=== PATIENT | male | born 1980 | race Caucasian/White ===

== ENCOUNTER → 2018-10-06 | Outpatient (CLI) | payer BC ==
--- NOTE | 2018-10-06 09:18 | US ---
EXAMINATION TYPE: US gallbladder DATE OF EXAM: 10/06/2018 COMPARISON: NONE CLINICAL HISTORY: K81.0 Acute cholecystitis. Difficult and limited exam due to overlying bowel gas EXAM MEASUREMENTS: Liver Length: 16.3 cm Gallbladder Wall: 0.2 cm CBD: 0.6 cm Right Kidney: 11.0 x 5.7 x 6.3 cm Pancreas: Visualized portions wnl Liver: Limited visualization due to overlying bowel. Visualized portions are coarse and heterogeneou s Gallbladder: No stones visualized Evidence for sonographic Bush's sign: No CBD: Measuring upper limits of normal, distal portion obscured by bowel gas Right Kidney: No hydronephrosis. Lobulated contour Visualized pancreas is heterogeneous without worrisome mass or ductal dilatation. Visualized liver is heterogeneously hyperechoic. Evaluation for focal masses is suboptimal due to the heterogeneity. Gal lbladder is seen without shadowing mobile gallstones. Common bile duct measures upper limits of justin l. Limited images right kidney show no gross hydronephrosis. IMPRESSION: No shadowing mobile gallstones or ultrasound evidence for acute cholecystitis. Probable d iffuse fatty infiltration of liver noted.
== END | disposition home or self-care (01) ==
LOC: RADUSWWP 06:56
PROVIDERS: ATTEND Family Medicine
DX: K81.0 Acute cholecystitis (principal); Z88.8 Allergy status to other drugs, medicaments and biological substances
CPT/HCPCS: 76705

== ENCOUNTER → 2018-10-14 | Outpatient (CLI) | payer BC ==
--- NOTE | 2018-10-15 07:31 | NM ---
EXAMINATION TYPE: NM hepatobiliary w EF DATE OF EXAM: 10/14/2018 COMPARISON: NONE HISTORY: Pain TECHNIQUE: After the intravenous administration of 4.78 mCi Tc 99m Mebrofenin hepatobiliary scintigra phy is performed. Immediate images post injection. FINDINGS: There is satisfactory initial accumulation of tracer by the liver. The gallbladder is visualized wit hin 6 minutes. The small bowel activity is noted within 24 minutes. At one hour 8 ounces of oral en sure plus is given to mimic CCK and gallbladder ejection fraction is calculated at 48 %, in the justin l range. Therefore there is no scintigraphic evidence of cystic or common bile duct obstruction to s uggest acute cholecystitis or gallbladder dyskinesia. IMPRESSION: Exam is within normal limits.
== END | disposition home or self-care (01) ==
LOC: RADNMMAIN 14:43
PROVIDERS: ATTEND Family Medicine
DX: K81.0 Acute cholecystitis (principal)
CPT/HCPCS: 78226; A9537

== ENCOUNTER 2020-12-23 16:35 | Emergency (ER) | payer BC ==
[2020-12-23 17:03] VITALS: BP 145/89; PULSE 75; RESP 16; TEMP 98.5
[2020-12-23] MEDS ORDERED: ACETAMINOPHEN TAB 325 MG TAB PO STA (18:11)
[2020-12-23] MEDS ORDERED: LIDOCAINE 1% INJ 10MG/ML (20 ML MDV) SQ ONE (18:11)
[2020-12-23] MEDS ORDERED: DIPH,PERTUS(ACELL)TETVAC-LF 0.5 ML VIAL IM ONE (18:11)
[2020-12-23] MEDS ORDERED: IBUPROFEN 600 MG STARTER PACK 4 TAB BTL PO STA (18:11)
[2020-12-23] MEDS ORDERED: GELATIN SPONGE,ABSORB (SMALL) 1 EACH SPONGE TOPICAL STA (18:11)
--- NOTE | 2020-12-23 18:31 | XR ---
EXAMINATION TYPE: XR finger LT DATE OF EXAM: 12/23/2020 COMPARISON: NONE HISTORY: Laceration TECHNIQUE: 3 views FINDINGS: There is fracture at the tuft of the distal phalanx of the left thumb. There is 6 x 3 mm ar ea of loss of bone at the tuft. There is no evidence of a foreign body. IMPRESSION: Fracture with loss of bone. No foreign body seen.
[2020-12-23] MEDS ORDERED: ceFAZolin 1,000 MG VIAL (IM USE) IM STA (18:45)
--- NOTE | 2020-12-23 19:32 | ED ---
Wound/Laceration HPI - General Source: patient Mode of arrival: ambulatory Limitations: no limitations <Cathie Rodriguez - Last Filed: 12/23/20 21:27> <Pricila Rabago - Last Filed: 12/26/20 02:23> - General Chief Complaint: Wound/Laceration Stated Complaint: L Thumb Lac Time Seen by Provider: 12/23/20 18:00 - History of Present Illness Initial Comments: 40-year-old male patient presents to the emergency department today for evaluation of injury to the left thumb. Patient states he was cutting wood with a skill saw when he slipped and cut his thumb. Is reporting a throbbing pain to the area. Denies any difficulty with range of motion. Was able to get the bleeding under control. Has not taking anything for pain. Denies any other injuries. He is unsure when his last tetanus vaccine was given. Denies use of blood thinning medications. (Cathie Rodriguez) - Related Data Previous Rx's Medication Instructions Recorded Cephalexin [Keflex] 500 mg PO Q6H #28 cap 12/23/20 Allergies Allergy/AdvReac Type Severity Reaction Status Date / Time HUMZA Inhibitors AdvReac Unknown Verified 12/23/20 17:01 Review of Systems ROS Other: All systems not noted in ROS Statement are negative. <Cathie Rodriguez - Last Filed: 12/23/20 21:27> ROS Other: All systems not noted in ROS Statement are negative. <Pricila Rabago - Last Filed: 12/26/20 02:23> ROS Statement: Those systems with pertinent positive or pertinent negative responses have been documented in the HPI. Past Medical History Past Medical History: GERD/Reflux, Hyperlipidemia, Hypertension History of Any Multi-Drug Resistant Organisms: None Reported Past Surgical History: Hernia Repair Past Psychological History: No Psychological Hx Reported Smoking Status: Never smoker Past Alcohol Use History: None Reported Past Drug Use History: None Reported <Cathie Rodriguez - Last Filed: 12/23/20 21:27> General Exam Limitations: no limitations General appearance: alert, in no apparent distress Respiratory exam: Present: normal lung sounds bilaterally. Absent: respiratory distress, wheezes, rales, rhonchi, stridor Cardiovascular Exam: Present: regular rate, normal rhythm, normal heart sounds. Absent: systolic murmur, diastolic murmur, rubs, gallop, clicks Extremities exam: Present: full ROM, normal capillary refill, other (There is skin avulsion and nail avulsion injury to the left distal thumb. Skin is otherwise pink, warm, and dry. Cap refil less than 3 seconds. Radial pulses 2+.). Absent: tenderness, pedal edema, joint swelling, calf tenderness Neurological exam: Present: alert, oriented X3, CN II-XII intact Psychiatric exam: Present: normal affect, normal mood Skin exam: Present: warm, dry, intact, normal color. Absent: rash <Cathie Rodriguez - Last Filed: 12/23/20 21:27> Course Vital Signs 12/23/20 17:01 Temperature 98.5 F Pulse Rate 75 Respiratory 16 Rate Blood Pressure 145/89 O2 Sat by Pulse 99 Oximetry Procedures - Laceration Laceration #1 Consent Obtained: verbal consent Indication: other (Skin and partial nail avulsion) Site: upper extremity (left thumb) Size (cm): 2 Description: avulsion Depth: simple, single layer Anesthetic Used: lidocaine 1% Anesthesia Technique: nerve block Amount (mls): 4 Pre-repair: irrigated extensively Patient Tolerated Procedure: well, no complications <Cathie Rodriguez - Last Filed: 12/23/20 21:27> - Laceration Laceration #1 Additional Comments: Wound was cleansed, two pieces of nail were hanging by a small piece of tissue, these were removed. The proximal nail fold remains in place. Some avulsed skin was removed. Gel foam placed. Dressing applied. (Cathie Rodriguez) Medical Decision Making - Radiology Data Radiology results: report reviewed, image reviewed <Cathie Rodriguez - Last Filed: 12/23/20 21:27> <Pricila Rabago - Last Filed: 12/26/20 02:23> - Medical Decision Making 40 year-old male patient presents to the emergency department for evaluation of injury to the left thumb. Physical examination shows nail and skin avulsion to the left thumb. Xray was obtained and showed a tuft fracture. Patient was given IM kefzol, adacel, pain medication. I did remove that avulsed nail bits, and a small area of avulsed pale skin. Gel foam was applied, dressing applied. She'll be discharged with a prescription for Keflex. Instructed to follow up with client success specialist for further evaluation as soon as possible. Return parameters were discussed in detail. He verbalizes understanding and agrees with this plan. My attending is Dr. Rabago. (Cathie Rodriguez) I was available for consultation in the emergency department. The history and physical exam were done by the midlevel provider. I was consulted for this patients care. I reviewed the case with the midlevel provider and based on their presentation of the patient, I agree with the assessment, medical decision making and plan of care as documented. Chart was dictated using [employer] dictation software. Attempts were made to correct any dictation errors however some typographical errors may persist. Patient was seen during a national state of emergency due to the Covid-19 pandemic. (Pricila Rabago) - Radiology Data X-ray of the left thumb is obtained. Report was reviewed in its entirety. Impression by Dr. Forrest shows fracture with loss of bone. No foreign body seen. (Cathie Rodriguez) Disposition Is patient prescribed a controlled substance at d/c from ED?: No Time of Disposition: 19:31 <Cathie Rodriguez - Last Filed: 12/23/20 21:27> <Pricila Rabago - Last Filed: 12/26/20 02:23> Clinical Impression: Nail avulsion, finger, Open fracture of tuft of distal phalanx of left thumb, Avulsion of skin of finger Disposition: HOME SELF-CARE Condition: Good Instructions (If sedation given, give patient instructions): Finger Fracture (ED), Skin Avulsion (ED), Nail Avulsion (ED) Additional Instructions: Take Tylenol and Motrin for pain control. Keep wound clean and dry. Cleanse twice daily with warm water and antibacterial soap. Follow-up with orthopedics for further evaluation as soon as possible. Return to the emergency department for any new, worsening, or concerning symptoms. Prescriptions: Cephalexin [Keflex] 500 mg PO Q6H #28 cap Referrals: Gavin Espitia DO [Primary Care Provider] - 1-2 days Ben Bush MD [STAFF PHYSICIAN] - 1-2 days
== END 2020-12-23 19:39 | disposition home or self-care (01) ==
LOC: EC 16:35
DX: S62.522B Displaced fracture of distal phalanx of left thumb, initial encounter for open fracture (principal); K21.9 Gastro-esophageal reflux disease without esophagitis; I10 Essential (primary) hypertension; E78.5 Hyperlipidemia, unspecified; Z23 Encounter for immunization; W31.2XXA Contact with powered woodworking and forming machines, initial encounter
CPT/HCPCS: 73140; 90715; 99283; 12001; 96372; 90471; J0690; J2001

== ENCOUNTER 2021-08-15 10:25 | Emergency (ER) | payer BC ==
[2021-08-15 10:42] VITALS: BP 130/89; PULSE 89; RESP 18; TEMP 98.2
--- NOTE | 2021-08-15 11:40 | ED ---
URI HPI - General Chief Complaint: Upper Respiratory Infection Stated Complaint: Upper Resp Time Seen by Provider: 08/15/21 11:30 Source: patient, family, RN notes reviewed Mode of arrival: ambulatory Limitations: no limitations - History of Present Illness Initial Comments: This is a well-appearing well-nourished 41-year-old male that presents to the e mergency room, alert and oriented 4, with complaints of upper respiratory type symptoms. Patient states that since beginning of July he has had a cough, nasal congestion, sinus pressure. He was tested for Covid on Friday and negative. He has been trying [id number] medications since July with minimal relief. He was seen by an urgent care and given Z-Mike which she has not worked here he went to another urgent care and was prescribed amoxicillin which he is currently taking. He states that he is now coughing up brown phlegm. Denies any fevers, nausea vomiting diarrhea, chest pain or difficulty breathing. He has no appetite change. He has no medical history. MD Complaint: cough, sore throat, nasal congestion -: month(s) (1) Improves With: OTC cold medicine Worsens With: nothing Context: sick contacts (covid contacts a few weeks ago) Associated Symptoms: nasal congestion, sore throat, cough Treatments Prior to Arrival: antibiotics (Zithromax and amoxicillin) - Related Data Previous Rx's Medication Instructions Recorded Cephalexin [Keflex] 500 mg PO Q6H #28 cap 12/23/20 Albuterol Inhaler [Ventolin Hfa 2 puff INHALATION RT-QID PRN #8 gm 08/15/21 Inhaler] Benzonatate [Tessalon Perles] 100 mg PO TID PRN #15 capsule 08/15/21 Allergies Allergy/AdvReac Type Severity Reaction Status Date / Time HUMZA Inhibitors AdvReac Unknown Verified 08/15/21 10:42 Review of Systems ROS Statement: Those systems with pertinent positive or pertinent negative responses have been documented in the HPI. ROS Other: All systems not noted in ROS Statement are negative. Past Medical History Past Medical History: GERD/Reflux, Hyperlipidemia, Hypertension History of Any Multi-Drug Resistant Organisms: None Reported Past Surgical History: Hernia Repair Past Psychological History: No Psychological Hx Reported Smoking Status: Never smoker Past Alcohol Use History: None Reported Past Drug Use History: None Reported General Exam Limitations: no limitations General appearance: alert, in no apparent distress Head exam: Present: atraumatic, normocephalic, normal inspection Eye exam: Present: normal appearance, EOMI ENT exam: Present: normal exam, normal oropharynx, mucous membranes moist Neck exam: Present: normal inspection, full ROM. Absent: tenderness, meningismus, lymphadenopathy, thyromegaly Respiratory exam: Present: normal lung sounds bilaterally. Absent: respiratory distress, wheezes, rales, rhonchi, stridor Cardiovascular Exam: Present: regular rate, normal rhythm, normal heart sounds. Absent: systolic murmur, diastolic murmur, rubs, gallop, clicks Back exam: Present: normal inspection, full ROM. Absent: tenderness, CVA tenderness (R), CVA tenderness (L), rash noted Neurological exam: Present: alert, oriented X3 Psychiatric exam: Present: normal affect, normal mood Skin exam: Present: warm, dry, intact, normal color. Absent: rash, cyanosis, diaphoretic, petechiae, pallor Course Vital Signs 08/15/21 10:37 Temperature 98.2 F Pulse Rate 89 Respiratory 18 Rate Blood Pressure 130/89 O2 Sat by Pulse 97 Oximetry Medical Decision Making - Medical Decision Making This is a well-appearing 41-year-old male who presents to the emergency room with complaints of upper respiratory congestion and sinus pressure since July. He states he was seen at urgent care and given a Z-Mike he continues to have the symptoms he has recently been placed on amoxicillin which she is currently taking. He started to cough up brown phlegm which is what brought him to the emergency room today. He was tested for coronavirus on Friday and negative. X-ray shows no acute cardiopulmonary process. Lung sounds are clear to auscultation. Oxygen saturation is 97%. He is afebrile in the emergency room and is not tachycardic. Patient has no medical history. This is likely a viral illness and patient was directed to follow up with his primary care doctor. He was prescribed an albuterol inhaler and Tessalon Perles as requested. Case discussed with Dr. Loo Disposition Clinical Impression: Acute upper respiratory infection Disposition: HOME SELF-CARE Condition: Good Instructions (If sedation given, give patient instructions): Upper Respiratory Infection (ED) Additional Instructions: Use the albuterol inhaler as needed for any difficulty breathing or coughing. You can use 2 puffs every 4 hours as needed. Follow-up with your primary care doctor this week. Return to the emergency room with any new or concerning symptoms. Prescriptions: Benzonatate [Tessalon Perles] 100 mg PO TID PRN #15 capsule PRN Reason: Cough Albuterol Inhaler [Ventolin Hfa Inhaler] 2 puff INHALATION RT-QID PRN #8 gm PRN Reason: Cough Is patient prescribed a controlled substance at d/c from ED?: No Referrals: Gavin Espitia DO [Primary Care Provider] - 1-2 days Time of Disposition: 12:48
--- NOTE | 2021-08-15 12:14 | XR ---
EXAMINATION TYPE: XR chest 2V DATE OF EXAM: 08/15/2021 COMPARISON: None INDICATION: Cough TECHNIQUE: Frontal and lateral views of the chest are obtained. FINDINGS: The heart size is normal. The pulmonary vasculature is normal. The lungs are clear. IMPRESSION: 1. No acute pulmonary process.
== END 2021-08-15 13:11 | disposition home or self-care (01) ==
LOC: EC 10:25
DX: J06.9 Acute upper respiratory infection, unspecified (principal); I10 Essential (primary) hypertension; E78.5 Hyperlipidemia, unspecified; K21.9 Gastro-esophageal reflux disease without esophagitis
CPT/HCPCS: 71046; 99283

== ENCOUNTER 2023-04-01 18:09 | Emergency (ER) | payer BC ==
[2023-04-01 18:34] VITALS: TEMP 98.5
[2023-04-01 20:24] LABS: Basophils % (A) 0 %; Eosinophils # (A) 0.2 k/uL (0-0.7); Eosinophils % (A) 2 %; HCT 43.3 % (39.0-53.0); HGB 15.1 gm/dL (13.0-17.5); Lymphocytes # (A) 2.2 k/uL (1.0-4.8); Lymphocytes % (A) 26 %; MCH 29.6 pg (25.0-35.0); MCHC 34.9 g/dL (31.0-37.0); MCV 84.9 fL (80.0-100.0); Mean Platelet Volume 7.9; Monocytes # (A) 0.5 k/uL (0-1.0); Monocytes % (A) 6 %; Neutrophils # (A) 5.4 k/uL (1.3-7.7); Neutrophils % (A) 64 %; Platelet Count 256 k/uL (150-450); RBC 5.09 m/uL (4.30-5.90); RDW 13.5 % (11.5-15.5); WBC 8.5 k/uL (3.8-10.6)
[2023-04-01 20:41] LABS: ALT 41 U/L (4-49); AST 27 U/L (17-59); African American GFR (CKD) >90 (>60 ml/min/1.73 sqM); Albumin 4.4 g/dL (3.5-5.0); Alkaline Phosphatase 75 U/L (38-126); Amylase 43 U/L (30-110); Anion Gap 10 mmol/L; Blood Urea Nitrogen 17 mg/dL (9-20); Calcium 9.4 mg/dL (8.4-10.2); Carbon Dioxide 23 mmol/L (22-30); Chloride 104 mmol/L (98-107); Glucose 102 mg/dL (74-99); Lipase 262 U/L (23-300); Non-African American GFR(CKD) >90 (>60 ml/min/1.73 sqM); Potassium 4.4 mmol/L (3.5-5.1); Sodium 137 mmol/L (137-145); Total Bilirubin 0.5 mg/dL (0.2-1.3); Total Protein 8.1 g/dL (6.3-8.2)
[2023-04-01 21:11] VITALS: PULSE 70; RESP 16
--- NOTE | 2023-04-01 21:16 | CT ---
EXAMINATION TYPE: CT abdomen pelvis wo con DATE OF EXAM: 04/01/2023 COMPARISON: None HISTORY: LLQ PAIN, H/O HERNIA CT DLP: 856.9 mGycm Examination of the solid and hollow viscera is limited given the lack of contrast. FINDINGS: LUNG BASES: No evidence for nodule. No evidence for infiltrate. LIVER/GB: There is hepatomegaly with underlying hepatic steatosis. The gallbladder is unremarkable. N o space-occupying hepatic lesion. PANCREAS: No pancreatic mass identified. No inflammatory process seen. SPLEEN: No evidence for splenomegaly. No intrasplenic lesions seen. ADRENALS: No adrenal nodules identified. No evidence for thickening. KIDNEYS: No evidence for renal mass. A 2 mm left ureteral calculus at the pelvic inlet resulting in v mavis mild left-sided hydronephrosis. No additional calculi seen. BOWEL: Appendix has a normal appearance. No evidence of bowel obstruction. No inflammatory process. Lymph nodes: No evidence for adenopathy greater than 1 cm. Abdominal aorta: Atheromatous changes seen. No evidence for aneurysm. Genital organs: No significant abnormality. Other: Small fat-containing left inguinal hernia. IMPRESSION: A 2 mm left ureteral calculus at the pelvic inlet resulting in very mild left-sided hydronephrosis. N o additional calculi seen.
[2023-04-01] MEDS ORDERED: TAMSULOSIN 0.4 MG CAP.ER.24H PO STA (22:14)
[2023-04-01 22:39] VITALS: BP 131/93
--- NOTE | 2023-04-01 22:48 | ED ---
Abdominal Pain HPI - General Chief Complaint: Abdominal Pain Stated Complaint: Abd pain Time Seen by Provider: 04/01/23 19:29 Source: patient Mode of arrival: ambulatory Limitations: no limitations - History of Present Illness Initial Comments: This patient is a 43-year-old man who presents to have evaluation of left lower quadrant/left groin pain. The patient states that it does somewhat remind him of a previous hernia that he had a but was repaired previously. The symptoms have been somewhat intermittent. He does not recall any injury or specific lifting episode. He has not noted fever or chills. No change in urination or bowel movements. No nausea or vomiting. MD Complaint: abdominal pain -: hour(s) Location: LLQ Radiation: none Migration to: no migration Severity: moderate Quality: sharp Consistency: colicky Improves With: nothing Worsens With: nothing Associated Symptoms: denies other symptoms - Related Data Previous Rx's Medication Instructions Recorded Cephalexin [Keflex] 500 mg PO Q6H #28 cap 12/23/20 Albuterol Inhaler [Ventolin Hfa 2 puff INHALATION RT-QID PRN #8 gm 08/15/21 Inhaler] Benzonatate [Tessalon Perles] 100 mg PO TID PRN #15 capsule 08/15/21 HYDROcodone/APAP 5-325MG [Buckner 1 tab PO Q4HR PRN 3 Days #18 tab 04/01/23 5-325] Tamsulosin [Flomax] 0.4 mg PO DAILY #14 cap 04/01/23 Allergies Allergy/AdvReac Type Severity Reaction Status Date / Time HUMZA Inhibitors AdvReac Unknown Verified 04/01/23 18:34 Review of Systems ROS Statement: Those systems with pertinent positive or pertinent negative responses have been documented in the HPI. ROS Other: All systems not noted in ROS Statement are negative. Constitutional: Denies: fever, chills Respiratory: Denies: cough, dyspnea Cardiovascular: Denies: chest pain, palpitations, edema Gastrointestinal: Reports: abdominal pain. Denies: nausea, vomiting, diarrhea, constipation, melena, hematochezia Genitourinary: Denies: dysuria, frequency, hematuria, testicular pain, testicular mass Musculoskeletal: Denies: back pain Skin: Denies: rash Neurological: Denies: headache Past Medical History Past Medical History: GERD/Reflux, Hyperlipidemia, Hypertension History of Any Multi-Drug Resistant Organisms: None Reported Past Surgical History: Hernia Repair Past Psychological History: No Psychological Hx Reported Smoking Status: Never smoker Past Alcohol Use History: None Reported Past Drug Use History: None Reported General Exam Limitations: no limitations General appearance: alert, in no apparent distress Head exam: Present: atraumatic, normocephalic Eye exam: Present: normal appearance. Absent: scleral icterus, conjunctival injection ENT exam: Present: normal oropharynx Respiratory exam: Present: normal lung sounds bilaterally. Absent: respiratory distress, wheezes, rales, rhonchi, stridor Cardiovascular Exam: Present: regular rate, normal rhythm, normal heart sounds. Absent: systolic murmur, diastolic murmur, rubs, gallop GI/Abdominal exam: Present: soft. Absent: distended, tenderness, guarding, rebound, rigid, mass, pulsatile mass, hernia exam: Present: normal inspection, vertical testicular lie. Absent: testicular tenderness, urethral discharge, scrotal swelling Back exam: Present: normal inspection. Absent: CVA tenderness (R), CVA tendern ess (L) Neurological exam: Present: alert Skin exam: Present: warm, dry, intact, normal color. Absent: rash Course Vital Signs 04/01/23 04/01/23 04/01/23 18:32 21:09 22:38 Temperature 98.5 F Pulse Rate 75 70 70 Respiratory 18 16 16 Rate Blood Pressure 142/87 130/96 131/93 O2 Sat by Pulse 97 98 97 Oximetry Medical Decision Making - Medical Decision Making Patient had computed tomography scan of the abdomen pelvis which I interpreted as showing distal left ureteral stone. This patient is a 43-year-old man with left pelvis/groin pain. The exam did not reveal presence of hernia. There was some microscopic hematuria and given severity of the pain, computed tomography scan obtained which does confirm presence of distal stone. We discussed appropriate further care and follow-up. We discussed return parameters. Was pt. sent in by a medical professional or institution (, PA, [employer], urgent care, hospital, or [place] [facility]...) When possible be specific @ -[No] Did you speak to anyone other than the patient for history (EMS, parent, family, police, friend...)? What history was obtained from this source @ -[No] Did you review nursing and triage notes (agree or disagree)? Why? @ -[I reviewed and agree with nursing and triage notes] Were old charts reviewed (outside hosp., previous admission, EMS record, old EKG, old radiological studies, urgent care reports/EKG's, [place] [facility] records)? Report findings @ -[No old charts were reviewed] Differential Diagnosis (chest pain, altered mental status, abdominal pain women, abdominal pain men, vaginal bleeding, weakness, fever, dyspnea, syncope, headache, dizziness, GI bleed, back pain, seizure, CVA, palpatations, mental health, musculoskeletal)? @ -[Differential Abdominal Pain Men: Appendicitis, cholecystitis, diverticulosis, ischemic bowel, pancreatitis, hepatitis, UTI, gastroenteritis, AAA, incarcerated hernia, bowel obstruction, constipation, inflammatory bowel, hepatitis, peptic ulcer disease, splenic infarction, perforated viscus, testicular torsion, this is not meant to be an all-inclusive list EKG interpreted by me (3pts min.). @ -[ X-rays interpreted by me (1pt min.). @ -[None done] CT interpreted by me (1pt min.). @ -[As above U/S interpreted by me (1pt. min.). @ -[None done] What testing was considered but not performed or refused? (CT, X-rays, U/S, labs)? Why? @ -[None] What meds were considered but not given or refused? Why? @ -[None] Did you discuss the management of the patient with other professionals (professionals i.e. , PA, [employer], lab, RT, psych nurse, nephrology social worker, histology supervisor, teacher, staff mine warfare officer, employment evaluator/case manager)? Give summary @ -[No] Was smoking cessation discussed for >3mins.? @ -[No] Was critical care preformed (if so, how long)? @ -[No] Were there social determinants of health that impacted care today? How? (Homelessness, low income, unemployed, alcoholism, drug addiction, transportation, low edu. Level, literacy, decrease access to med. care, [place] [facility], rehab)? @ -[No] Was there de-escalation of care discussed even if they declined (Discuss DNR or withdrawal of care, Hospice)? DNR status @ -[No] What co-morbidities impacted this encounter? (DM, HTN, Smoking, COPD, CAD, Cancer, CVA, ARF, Chemo, Hep., AIDS, mental health diagnosis, sleep apnea, morbid obesity)? @ -[None] Was patient admitted / discharged? Hospital course, mention meds given and route, prescriptions, significant lab abnormalities, going to OR and other pertinent info. @ -[Patient is discharged to follow up with urology on an as-needed basis. Undiagnosed new problem with uncertain prognosis? @ -[No] Drug Therapy requiring intensive monitoring for toxicity (Heparin, Nitro, Insulin, Cardizem)? @ -[No] Were any procedures done? @ -[No] Diagnosis/symptom? @ -[Abdominal pain Microscopic hematuria Left ureteral stone Acute, or Chronic, or Acute on Chronic? @ -[ACute Uncomplicated (without systemic symptoms) or Complicated (systemic symptoms)? @ -[Uncomplicated Side effects of treatment? @ -[No] Exacerbation, Progression, or Severe Exacerbation? @ -[No] Poses a threat to life or bodily function? How? (Chest pain, [place], [place], pneumonia, PE, COPD, DKA, ARF, appy, cholecystitis, CVA, Diverticulitis, Homicidal, Suicidal, threat to staff... and all critical care pts) @ -[No] - Lab Data Result diagrams: 04/01/23 20:14 04/01/23 20:14 Lab Results 04/01/23 04/01/23 04/01/23 Range/Units 20:14 20:14 21:00 WBC 8.5 (3.8-10.6) k/uL RBC 5.09 (4.30-5.90) m/uL Hgb 15.1 (13.0-17.5) gm/dL Hct 43.3 (39.0-53.0) % MCV 84.9 (80.0-100.0) fL MCH 29.6 (25.0-35.0) pg MCHC 34.9 (31.0-37.0) g/dL RDW 13.5 (11.5-15.5) % Plt Count 256 (150-450) k/uL MPV 7.9 Neutrophils % 64 % Lymphocytes % 26 % Monocytes % 6 % Eosinophils % 2 % Basophils % 0 % Neutrophils # 5.4 (1.3-7.7) k/uL Lymphocytes # 2.2 (1.0-4.8) k/uL Monocytes # 0.5 (0-1.0) k/uL Eosinophils # 0.2 (0-0.7) k/uL Basophils # 0.0 (0-0.2) k/uL Sodium 137 (137-145) mmol/L Potassium 4.4 (3.5-5.1) mmol/L Chloride 104 (98-107) mmol/L Carbon Dioxide 23 (22-30) mmol/L Anion Gap 10 mmol/L BUN 17 (9-20) mg/dL Creatinine 0.87 (0.66-1.25) mg/dL Est GFR (CKD-EPI)AfAm >90 (>60 ml/min/1.73 sqM) Est GFR (CKD-EPI)NonAf >90 (>60 ml/min/1.73 sqM) Glucose 102 H (74-99) mg/dL Calcium 9.4 (8.4-10.2) mg/dL Total Bilirubin 0.5 (0.2-1.3) mg/dL AST 27 (17-59) U/L ALT 41 (4-49) U/L Alkaline Phosphatase 75 (38-126) U/L Total Protein 8.1 (6.3-8.2) g/dL Albumin 4.4 (3.5-5.0) g/dL Amylase 43 (30-110) U/L Lipase 262 (23-300) U/L Urine Color Light Yellow Urine Appearance Clear (Clear) Urine pH 6.5 (5.0-8.0) Ur Specific [place] 1.019 (1.001-1.035) Urine Protein Negative (Negative) Urine Glucose (UA) Negative (Negative) Urine Ketones Negative (Negative) Urine Blood Small (Negative) Urine Nitrite Negative (Negative) Urine Bilirubin Negative (Negative) Urine Urobilinogen 0.2 (<2.0) mg/dL Ur Leukocyte Esterase Negative (Negative) Urine RBC 20 H (0-5) /hpf Urine WBC 2 (0-5) /hpf Amorphous Sediment Occasional H (None) /hpf Disposition Clinical Impression: Calculus of kidney Disposition: HOME SELF-CARE Condition: Good Instructions (If sedation given, give patient instructions): Kidney Stones (ED) Prescriptions: Tamsulosin [Flomax] 0.4 mg PO DAILY #14 cap HYDROcodone/APAP 5-325MG [Buckner 5-325] 1 tab PO Q4HR PRN 3 Days #18 tab PRN Reason: Pain Is patient prescribed a controlled substance at d/c from ED?: Yes Referrals: Gavin Espitia DO [Primary Care Provider] - 1-2 days
[2023-04-01 22:53] LABS: Color,Urine Light Yellow
[2023-04-01 22:54] LABS: Appearance,Urine Clear (Clear); Bilirubin,Urine Negative (Negative); Blood,Urine Small (Negative); Glucose,Urine (UA) Negative (Negative); Ketones,Urine Negative (Negative); PH, Urine 6.5 (5.0-8.0); Protein,Urine Negative (Negative); Specific Gravity,Urine 1.019 (1.001-1.035)
[2023-04-01 22:55] LABS: Amorphous Sediment,Urine Occasional /hpf; Leukocyte Esterase,Urine Negative (Negative); Nitrite,Urine Negative (Negative); RBC,Urine 20 /hpf (0-5); Urobilinogen,Urine 0.2 mg/dL (<2.0); WBC,Urine 2 /hpf (0-5)
== END 2023-04-01 22:59 | disposition home or self-care (01) ==
LOC: EC 18:09
DX: N13.2 Hydronephrosis with renal and ureteral calculous obstruction (principal); I10 Essential (primary) hypertension; Z88.8 Allergy status to other drugs, medicaments and biological substances
CPT/HCPCS: 36415; 74176; 80053; 81001; 82150; 83690; 85025; 99284

== ENCOUNTER → 2024-03-04 | Outpatient (CLI) | payer BC ==
[2024-03-04 09:41] LABS: Basophils # (A) 0.1 k/uL (0-0.2); Basophils % (A) 1 %; Eosinophils # (A) 0.2 k/uL (0-0.7); Eosinophils % (A) 2 %; HCT 46.7 % (39.0-53.0); HGB 15.1 gm/dL (13.0-17.5); Lymphocytes # (A) 1.9 k/uL (1.0-4.8); Lymphocytes % (A) 26 %; MCH 28.2 pg (25.0-35.0); MCHC 32.3 g/dL (31.0-37.0); MCV 87.3 fL (80.0-100.0); Mean Platelet Volume 8.2; Monocytes # (A) 0.5 k/uL (0-1.0); Monocytes % (A) 7 %; Neutrophils # (A) 4.5 k/uL (1.3-7.7); Neutrophils % (A) 62 %; Platelet Count 248 k/uL (150-450); RBC 5.35 m/uL (4.30-5.90); RDW 13.4 % (11.5-15.5); WBC 7.2 k/uL (3.8-10.6)
[2024-03-04 09:52] LABS: Total Eosinophil Count 144 #EOS/uL (150-300)
[2024-03-04 17:09] LABS: Alternaria alternata IgE <0.10 kU/L; Aspergillus fumagatus IgE <0.10 kU/L; Birch IgE <0.10 kU/L; Cat Epith & Dander IgE <0.10 kU/L; Cladosporian herbarum IgE <0.10 kU/L; Cockroach IgE <0.10 kU/L; Dermato. farinae IgE <0.10 kU/L; Dog Dander IgE <0.10 kU/L; Elm IgE <0.10 kU/L; Maple (Box Elder) IgE <0.10 kU/L; Oak IgE <0.10 kU/L; Ragweed,Common IgE 0.18 kU/L; Red Top (Bentgrass) IgE <0.10 kU/L
== END | disposition home or self-care (01) ==
LOC: LABWHC1 08:30
PROVIDERS: ATTEND Internal Medicine
DX: J45.30 Mild persistent asthma, uncomplicated (principal)
CPT/HCPCS: 36415; 82785; 85008; 85025; 86003